=== PATIENT | female | born 1980 | race Caucasian/White ===

== ENCOUNTER 2023-08-08 14:17 | Emergency (ER) | payer OTHER ==
[2023-08-08 15:05] LABS: BASOPHILS # (AUTO) 0.1 10^3/uL (0.0-0.1); BASOPHILS % (AUTO) 0.6 %; EOSINOPHILS # (AUTO) 0.2 10^3/uL (0.0-0.7); HCT - HEMATOCRIT 41.2 % (37.0-47.0); HGB - HEMOGLOBIN 13.3 g/dL (12.0-16.0); LYMPHOCYTES # (AUTO) 2.7 10^3/uL (1.5-3.5); LYMPHOCYTES % (AUTO) 26.2 %; MEAN CORPUSCULAR HEMOGLOBIN 29.2 pg (27.0-31.0); MEAN CORPUSCULAR HGB CONC 32.3 g/dL (32.0-36.0); MEAN CORPUSCULAR VOLUME 90.4 fL (81.0-99.0); MEAN PLATELET VOLUME 10.4 fL (7.9-10.8); MONOCYTES # (AUTO) 0.8 10^3/uL (0.0-1.0); MONOCYTES % (AUTO) 7.5 %; NEUTROPHILS # (AUTO) 6.6 10^3/uL (1.5-6.6); NEUTROPHILS % (AUTO) 63.4 %; PLT - PLATELET COUNT 300 10^3/uL (130-450); RED BLOOD COUNT 4.56 10^6/uL (4.20-5.40); RED CELL DISTRIBUTION WIDTH 13.2 % (12.0-15.0); WHITE BLOOD COUNT 10.4 x10^3/uL (4.8-10.8)
[2023-08-08 15:23] LABS: ALBUMIN 4.8 g/dL (3.2-5.5); ALBUMIN/GLOBULIN RATIO 1.6 (1.0-2.2); BILIRUBIN,TOTAL 0.3 mg/dL (0.2-1.0); CALCIUM 10.1 mg/dL (8.5-10.3); CREATININE 0.7 mg/dL (0.6-1.3); POTASSIUM 4.1 mmol/L (3.5-4.5); TOTAL PROTEIN 7.8 g/dL (6.4-8.9)
[2023-08-08 15:24] LABS: TROPONIN I HIGH SENSITIVITY 2.3 ng/L (2.3-14.8)
[2023-08-08 15:43] VITALS: O2SAT 98
--- NOTE | 2023-08-08 15:46 | XRAY Report ---
PROCEDURE: Chest 1V INDICATIONS: Chest pain TECHNIQUE: One view of the chest was acquired. COMPARISON: None. FINDINGS: Surgical changes and devices: None. Lungs and pleura: No pleural effusions or pneumothorax. Lungs are clear. Mediastinum: Mediastinal contours appear normal. Heart size is normal. Bones and chest wall: No suspicious bony lesions. Overlying soft tissues appear unremarkable. IMPRESSION: No acute cardiopulmonary process. Reviewed by: Kevin Lucas MD on 08/08/2023 3:45 PM PST Approved by: Kevin Lucas MD on 08/08/2023 3:45 PM PST Station ID: [id number]
--- NOTE | 2023-08-08 16:10 | ED Physician Documentation ---
History of Present Illness - Stated complaint Stated Complaint: HIGH HR,SOA - Chief complaint Chief Complaint: Cardiac - Additonal information Additional information: 43-year-old female presents emergency department for concerns of tachycardia. Patient has had new new medication she denies any illicit drug use no alcohol use. Patient says that about 3 to 4 months ago she started to notice that her heart was racing with minimal movement she says at rest it is always in the low 100s in the activity as simple as standing or walking her heart rate goes up to 130s 140s. She said that she has been very persistent not trying to drink plen ty of fluids she denies any fevers or chills no night sweats no nausea vomiting no dizziness no chest pain. She says this is never happened before. PD PAST MEDICAL HISTORY - Past Medical History Cardiovascular: None - Present Medications Home Medications: Ambulatory Orders Medication Instructions Recorded Confirmed DULoxetine [Cymbalta] 60 mg PO DAILY 08/08/23 Gabapentin [Neurontin] 300 mg PO HS 08/08/23 Metoprolol Tartrate [Lopressor] 25 mg PO DAILY #15 tablet 08/08/23 Mirtazapine 30 mg PO HS 08/08/23 Montelukast Sodium 10 mg PO DAILY 08/08/23 - Allergies Allergies/Adverse Reactions: Allergies Allergy/AdvReac Type Severity Reaction Status Date / Time hydroxychloroquine Allergy Rash Verified 08/08/23 16:12 [From Plaquenil] lamotrigine [From Lamictal] Allergy Rash Verified 08/08/23 16:12 adalimumab [From Humira] AdvReac Unknown Verified 08/08/23 14:33 PD ED PE NORMAL - Vitals Vital signs reviewed: Yes - General General: Alert and oriented X 3, No acute distress, Well developed/nourished - HEENT HEENT: Atraumatic, PERRL - Neck Neck: No JVD - Cardiac Cardiac: No murmur, No gallop, Other (tachycardia) - Respiratory Respiratory: No respiratory distress, Clear bilaterally - Abdomen Abdomen: Normal bowel sounds, Soft, Non tender - Derm Derm: Normal color, Warm and dry, No rash - Extremities Extremities: No edema Results - Vitals Vitals: Oxygen O2 Source Room air - EKG (time done) 1432 EKG releavant findings:: EKG personally interpreted by author of this note. Relevant findings are: Rate: Rate (enter#) (96) Rhythm: NSR [place]: Normal Intervals: Normal [place] QRS: Normal Ischemia: Normal ST segments Computer interpretation: Agree with computer - Labs Labs: Laboratory Tests 08/08/23 08/08/23 08/08/23 14:56 14:56 14:56 WBC 10.4 RBC 4.56 Hgb 13.3 Hct 41.2 MCV 90.4 MCH 29.2 MCHC 32.3 RDW 13.2 Plt Count 300 MPV 10.4 Neut # (Auto) 6.6 Lymph # (Auto) 2.7 [place] # (Auto) 0.8 Eos # (Auto) 0.2 Baso # (Auto) 0.1 Absolute Nucleated RBC 0.00 Nucleated RBC % 0.0 Sodium 141 Potassium 4.1 Chloride 104 Carbon Dioxide 29 Anion Gap 8.0 BUN 17 Creatinine 0.7 Estimated GFR (MDRD) 92 Glucose 95 Calcium 10.1 Total Bilirubin 0.3 AST 18 ALT 16 Alkaline Phosphatase 60 Troponin I High Sens 2.3 Total Protein 7.8 Albumin 4.8 Globulin 3.0 Albumin/Globulin Ratio 1.6 Lipase 19 TSH 1.59 PD Medical Decision Making - ED course ED course: 43-year-old female presents emergency department for persistent tachycardia. She was given a liter of IV fluids to see if this helped with her heart rate and unfortunately it did not make much of a difference. Labs are collected and everything is overall unremarkable including her TSH. No anemia. No electrolyte abnormalities. Patient was started on metoprolol tart 25 mg here in the emergency department and a prescription was sent to her preferred pharmacy. She is having a hard time getting in with a primary care provider so she was told to expand her search to [facility] in [place] to see if someone is able to get her in [place]. She has no dizziness no EKG changes No chest pain. She is safe for discharge she is given return precautions Departure - Departure Disposition: 01 Home, Self Care Clinical Impression: Tachycardia Condition: Good Instructions: Tachycardia Prescriptions: Metoprolol Tartrate [Lopressor] 25 mg PO DAILY #15 tablet Comments: Thank you for trusting us with your care we have given you a liter of IV fluids to help with the tachycardia which did not seem to make a huge difference. I have also started you on a beta-steve called metoprolol. I have sent a prescription to [facility] in [place] for you to pick this up tomorrow morning can take 1 pill daily to see if this helps his tachycardia. If tomorrow morning your heart rate is still high and going up to the 120s 130s despite the 25 mg of metoprolol you can take a second dose. It is very important that you follow- up with a primary care provider like I said I would call around everywhere to get established with someone as soon as possible [address] place I would call and see if you can get a same-day appointment with his [facility] residency clinic. Please come back to the emergency department for starting develop any dizziness, shortness of breath, chest pain, or any other cardiac symptoms. Forms: PCP List Discharge Date/Time: 08/08/23 20:12
[2023-08-08] MEDS: SODIUM CHLORIDE 0.9% 1,000 ML IV ONE (17:47)
[2023-08-08] MEDS: METOPROLOL TARTRATE 50 MG TABLET PO STA (18:47)
[2023-08-08 20:04] VITALS: BP 138/78
== END 2023-08-08 20:12 | disposition home or self-care (01) ==
LOC: ED 14:17
DX: R00.0 Tachycardia, unspecified (principal); Z79.899 Other long term (current) drug therapy
CPT/HCPCS: 36415; 71045; 80053; 83690; 84443; 84484; 85025; 93005; 96360; 99283; 99284; A9270

== ENCOUNTER 2023-08-12 11:18 | Emergency (ER) | payer OTHER ==
--- NOTE | 2023-08-12 11:37 | ED Physician Documentation ---
PD HPI CHEST PAIN - Stated complaint Stated Complaint: TACHYCARDIA - Chief complaint Chief Complaint: Cardiac - History obtained from History obtained from: Patient - History of Present Illness Timing - onset: How many weeks ago (3) Timing - onset during: Light activity, Exertion Timing - duration: Minutes Timing - details: Waxing and waning Worsened by: Exertion (Patient presents with 3 weeks of worsening feelings of palpitation and tachycardia. Patient states that over the past 3 weeks she has had heart rate up to 120s to 140s. Worse with exertion or with standing up. Relieved by rest and being still. She has been walking regularly and drinking lots of) Review of Systems Constitutional: reports: Reviewed and negative. 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 : None HEENT: None Psych: Depression, Anxiety Musculoskeletal: Other Derm: None - Past Surgical History Past Surgical History: Yes General: Cholecystectomy /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: Tubal ligation - Present Medications Home Medications: Ambulatory Orders Medication Instructions Recorded Confirmed DULoxetine [Cymbalta] 60 mg PO DAILY 08/08/23 Gabapentin [Neurontin] 300 mg PO HS 08/08/23 Metoprolol Tartrate [Lopressor] 25 mg PO DAILY #15 tablet 08/08/23 Mirtazapine 30 mg PO HS 08/08/23 Montelukast Sodium 10 mg PO DAILY 08/08/23 - Allergies Allergies/Adverse Reactions: Allergies Allergy/AdvReac Type Severity Reaction Status Date / Time hydroxychloroquine Allergy Rash Verified 08/12/23 11:22 [From Plaquenil] lamotrigine [From Lamictal] Allergy Rash Verified 08/12/23 11:22 adalimumab [From Humira] AdvReac Unknown Verified 08/12/23 11:22 - Social History Does the pt smoke?: No Smoking Status: Never smoker Does the pt drink ETOH?: No Does the pt have substance abuse?: No - Immunizations Immunizations are current?: Yes - POLST Patient has POLST: No PD ED PE NORMAL - General General: Alert and oriented X 3 - HEENT HEENT: Atraumatic - Neck Neck: Supple, no meningeal sign - Cardiac Cardiac: RRR, No murmur - Respiratory Respiratory: No respiratory distress - Abdomen Abdomen: Normal bowel sounds, Soft - Extremities Extremities: No edema, No calf tenderness / cord - Neuro Neuro: Alert and oriented X 3, No motor deficit, No sensory deficit Results - Vitals Vitals: Vital Signs - 24 hr 08/12/23 08/12/23 08/12/23 11:22 11:26 11:32 Temperature 36.8 C Heart Rate 100 83 Respiratory 16 14 Rate Blood Pressure 132/75 H 110/85 H Blood Pressure 110/85 H [R Arm] O2 Saturation 100 98 08/12/23 13:13 Temperature Heart Rate 79 Respiratory 20 Rate Blood Pressure 111/66 Blood Pressure [R Arm] O2 Saturation 100 Oxygen O2 Source Room air - EKG (time done) 1141 EKG releavant findings:: EKG personally interpreted by author of this note. Relevant findings are: Rate: Rate (enter#) (86) Rhythm: NSR [place]: Normal Intervals: Normal [place] QRS: Normal Ischemia: Normal ST segments Compare to prior EKG: Unchanged from prior EKG Computer interpretation: Agree with computer - Labs Labs: Laboratory Tests 08/12/23 08/12/23 08/12/23 12:00 12:00 12:00 WBC 8.5 RBC 4.31 Hgb 12.6 Hct 38.5 MCV 89.3 MCH 29.2 MCHC 32.7 RDW 12.9 Plt Count 260 MPV 10.8 Neut # (Auto) 5.2 Lymph # (Auto) 2.3 [place] # (Auto) 0.7 Eos # (Auto) 0.2 Baso # (Auto) 0.1 Absolute Nucleated RBC 0.00 Nucleated RBC % 0.0 D-Dimer < 200.0 L Sodium 137 Potassium 3.8 Chloride 105 Carbon Dioxide 27 Anion Gap 5.0 L BUN 14 Creatinine 0.6 Estimated GFR (MDRD) 110 Glucose 93 Calcium 9.3 Total Bilirubin 0.2 AST 13 ALT 11 Alkaline Phosphatase 59 Total Protein 6.4 Albumin 4.1 Globulin 2.3 Albumin/Globulin Ratio 1.8 PD Medical Decision Making - ED course Complexity details: reviewed old records, reviewed results, considered differential ( consider anemia, thyroid issue, pulmonary embolus) ED course: Patient reports with exertional tachycardia. EKG here shows sinus rhythm with normal intervals throughout. No obvious cause for sinus tachycardia specifically no fever, anemia, thyroid disease. D-dimer is negative so doubt PE. At this point would recommend close follow-up with PCP and cardiology. Still unclear what her tachycardia could be from differential would have to include anxiety though she does not strike me as being highly anxious. Physiologically doing well here, heart rate in the 80s and blood pressure stable. Normal oxygen saturation. Departure - Departure Disposition: Home, Self Care Clinical Impression: Tachycardia Condition: Good Instructions: Tachycardia Follow-Up: William Gasca MD [Provider Admit Priv/Credential] - Comments: continue the metoprolol as prescribed. keep appointment with Primary care as this is the fastest way to get you to see cardiology which is ultimately likely what is needed.Today you are in sinus rhythm with a manageable heart rate stable blood pressure and your lab work is all reassuring. Forms: PCP List Discharge Date/Time: 08/12/23 13:17
[2023-08-12] MEDS: SODIUM CHLORIDE 0.9% 1,000 ML IV STA (12:05)
[2023-08-12 12:13] LABS: BASOPHILS # (AUTO) 0.1 10^3/uL (0.0-0.1); BASOPHILS % (AUTO) 0.7 %; EOSINOPHILS # (AUTO) 0.2 10^3/uL (0.0-0.7); EOSINOPHILS % (AUTO) 2.7 %; HCT - HEMATOCRIT 38.5 % (37.0-47.0); HGB - HEMOGLOBIN 12.6 g/dL (12.0-16.0); LYMPHOCYTES # (AUTO) 2.3 10^3/uL (1.5-3.5); LYMPHOCYTES % (AUTO) 26.6 %; MEAN CORPUSCULAR HEMOGLOBIN 29.2 pg (27.0-31.0); MEAN CORPUSCULAR HGB CONC 32.7 g/dL (32.0-36.0); MEAN CORPUSCULAR VOLUME 89.3 fL (81.0-99.0); MEAN PLATELET VOLUME 10.8 fL (7.9-10.8); MONOCYTES # (AUTO) 0.7 10^3/uL (0.0-1.0); MONOCYTES % (AUTO) 8.7 %; NEUTROPHILS # (AUTO) 5.2 10^3/uL (1.5-6.6); NEUTROPHILS % (AUTO) 61.2 %; PLT - PLATELET COUNT 260 10^3/uL (130-450); RED BLOOD COUNT 4.31 10^6/uL (4.20-5.40); RED CELL DISTRIBUTION WIDTH 12.9 % (12.0-15.0); WHITE BLOOD COUNT 8.5 x10^3/uL (4.8-10.8)
[2023-08-12 12:34] LABS: ALBUMIN 4.1 g/dL (3.2-5.5); ALBUMIN/GLOBULIN RATIO 1.8 (1.0-2.2); BILIRUBIN,TOTAL 0.2 mg/dL (0.2-1.0); CALCIUM 9.3 mg/dL (8.5-10.3); CREATININE 0.6 mg/dL (0.6-1.3); POTASSIUM 3.8 mmol/L (3.5-4.5); TOTAL PROTEIN 6.4 g/dL (6.4-8.9)
[2023-08-12 13:23] VITALS: BP 111/66; O2SAT 100
== END 2023-08-12 13:17 | disposition home or self-care (01) ==
LOC: ED 11:18
DX: R00.0 Tachycardia, unspecified (principal)
CPT/HCPCS: 36415; 80053; 85025; 85379; 93005; 99283

== ENCOUNTER 2023-10-12 16:30 | Emergency (ER) | payer OTHER ==
--- NOTE | 2023-10-12 16:47 | ED Physician Documentation ---
History of Present Illness - Stated complaint Stated Complaint: SOA - Chief complaint Chief Complaint: Resp - History obtained from History obtained from: Patient - Additonal information Additional information: 43-year-old woman with asthma has been having a tough spring with pollen and has been short of breath for the last week or so. She was seen in the ER at [facility] a few days ago and was put on a Medrol Dosepak and got a DuoNeb which was helpful. She is getting less relief at home with her plain albuterol nebulizer and finished the Dosepak today with increased shortness of breath and wheezing and minimally productive cough. No fevers. She is usually on a beta-stvee and is tachycardic right now, she attributes this to being off the beta-steve while she has a Zio patch in place. 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: Tubal ligation - Present Medications Home Medications: Ambulatory Orders Medication Instructions Recorded Confirmed DULoxetine [Cymbalta] 60 mg PO DAILY 08/08/23 Gabapentin [Neurontin] 300 mg PO HS 08/08/23 Metoprolol Tartrate [Lopressor] 25 mg PO DAILY #15 tablet 08/08/23 Mirtazapine 30 mg PO HS 08/08/23 Montelukast Sodium 10 mg PO DAILY 08/08/23 Ipratropium/Albuterol [Duoneb] 3 ml INH Q6H PRN #30 ea 10/12/23 methylPREDNISolone [Medrol Dose 1 each PO .PACKAGEINSTRUCTIONS 6 10/12/23 Pack] Days #1 each - Allergies Allergies/Adverse Reactions: Allergies Allergy/AdvReac Type Severity Reaction Status Date / Time hydroxychloroquine Allergy Rash Verified 08/12/23 11:22 [From Plaquenil] lamotrigine [From Lamictal] Allergy Rash Verified 08/12/23 11:22 tuberculin,PPD,multi-puncture Allergy Anaphylaxis Verified 10/12/23 16:40 adalimumab [From Humira] AdvReac Unknown Verified 08/12/23 11:22 - Social History Does the pt smoke?: No Smoking Status: Never smoker Does the pt drink ETOH?: No Does the pt have substance abuse?: No - Immunizations Immunizations are current?: Yes - POLST Patient has POLST: No PD ED PE NORMAL - Vitals Vital signs reviewed: Yes - General General: Alert and oriented X 3, No acute distress - HEENT HEENT: PERRL, EOMI - Neck Neck: Supple, no meningeal sign, No bony TTP - Respiratory Respiratory: No respiratory distress, Other (No respiratory distress but she does have diffuse expiratory wheezes especially at the bases without focal findings or anything suggestive of an infection.) - Abdomen Abdomen: Normal bowel sounds, Soft, Non tender Results - Vitals Vitals: Vital Signs - 24 hr 10/12/23 16:32 Temperature 36.6 C Heart Rate 120 H Respiratory 18 Rate Blood Pressure 146/83 H O2 Saturation 98 Oxygen O2 Source Room air PD Medical Decision Making - ED course ED course: 43-year-old woman with asthma exacerbation. We will change out her DuoNeb we will give her a DuoNeb here and change out her albuterol prescription for DuoNeb and restart the steroids pending follow-up. Departure - Departure Disposition: 01 Home, Self Care Clinical Impression: Asthma Condition: Good Record reviewed to determine appropriate education?: Yes Instructions: Asthma Dc Prescriptions: Ipratropium/Albuterol [Duoneb] 3 ml INH Q6H PRN #30 ea PRN Reason: Wheezing methylPREDNISolone [Medrol Dose Pack] 1 each PO .PACKAGEINSTRUCTIONS 6 Days #1 each Comments: I sent your prescriptions electronically to the [facility] in [place]. I am prescribing DuoNeb. You can still take albuterol between the DuoNeb as needed. And we are restarting the steroids. Follow-up with your doctor as scheduled. Return for new or worsening symptoms.
[2023-10-12 16:48] VITALS: BP 146/83; O2SAT 98
[2023-10-12] MEDS: IPRATROPIUM/ALBUTEROL 3 ML NEB INH STA (16:55)
[2023-10-12] MEDS: predniSONE 20 MG TABLET PO STA (16:56)
== END 2023-10-12 17:10 | disposition home or self-care (01) ==
LOC: ED 16:30
DX: J45.901 Unspecified asthma with (acute) exacerbation (principal)
CPT/HCPCS: 94640; 94664; 99283; 99284; J7512